=== PATIENT | female | born 1985 | race Caucasian/White ===

== ENCOUNTER 2018-07-25 00:03 | Emergency (ER) | payer BC ==
[2018-07-25] MEDS ORDERED: diphenhydrAMINE 50 MG Cap PO ONE (00:29)
[2018-07-25] MEDS ORDERED: HYDROmorphone 1 MG/ML Syringe IM ONE (00:29)
[2018-07-25] MEDS ORDERED: Ibuprofen 800 MG Tab PO ONE (00:36)
--- NOTE | 2018-07-25 00:40 | EDM.PDOC ---
ED HPI GENERAL MEDICAL PROBLEM - General Chief Complaint: Lower Extremity Injury/Pain Stated Complaint: knee pain Time Seen by Provider: 07/25/18 00:14 Source of Information: Reports: Patient History Limitations: Reports: No Limitations - History of Present Illness INITIAL COMMENTS - FREE TEXT/NARRATIVE: The patient is a 33-year-old female who presents with poorly controlled postoperative knee pain. She had an ACL repair completed yesterday. Initially her pain was well controlled. She was taking hydrocodone. However she had a lot of itching on the hydrocodone so was changed to Nucynta today. Since this switch , her pain has been increasingly poorly controlled. She's been taking up to 2 tabs every 4 hours with no relief. She's been staying off the knee as much as possible and has been icing it as well. She does feel like it is mildly swollen. It also feels warm to her. No fever. Pain is throbbing, constant, severe, worse with motion. She doesn't have follow-up scheduled until next week. Itching is improved now that she started taking hydrocodone but her pain relief is poor. Right Knee Pain Score (Numeric/FACES): 10 - Related Data Allergies Allergy/AdvReac Type Severity Reaction Status Date / Time hydrocodone AdvReac Itching Verified 07/25/18 00:15 Home Meds: Home Meds Aspirin 325 mg PO BID 07/25/18 [History] Gabapentin [Neurontin] 600 mg PO BID 07/25/18 [History] Tapentadol HCl [Nucynta] 50 - 100 mg PO Q6H PRN 07/25/18 [History] Past Medical History - Past Surgical History HEENT Surgical History: Reports: Oral Surgery Musculoskeletal Surgical History: Reports: Arthroscopic Knee, Shoulder Surgery Social & Family History - Family History Family Medical History: Noncontributory - Tobacco Use Smoking Status *Q: Never Smoker - Recreational Drug Use Recreational Drug Use: No Review of Systems - Review of Systems Review Of Systems: See Below Constitutional: Denies: Fever Respiratory: Reports: No Symptoms Cardiovascular: Reports: No Symptoms GI/Abdominal: Reports: No Symptoms Musculoskeletal: Reports: Leg Pain Neurological: Reports: No Symptoms ED EXAM, GENERAL - Physical Exam Exam: See Below Exam Limited By: No Limitations General Appearance: Alert, WD/WN, Mild Distress Eye Exam: Bilateral Eye: Normal Inspection Ears: Normal External Exam Nose: Normal Inspection Throat/Mouth: Normal Inspection, Normal Oropharynx, Normal Voice Head: Atraumatic, Normocephalic Neck: Normal Inspection, Supple Respiratory/Chest: No Respiratory Distress Extremities: Other (RLE: Sunny bandage removed. Dressing is clean and dry with a minimal amount of dried blood. Sutures intact, no purulence. No surrounding erythema. There is mild warmth and tenderness about the knee. No large effusion. No evidence of cellulitis.) Neurological: Alert, Oriented, Normal Cognition Psychiatric: Normal Affect, Normal Mood Course - Vital Signs Last Recorded V/S: Last Vital Signs Temp 36.6 C 07/25/18 00:11 Pulse 83 07/25/18 00:11 Resp 16 07/25/18 00:11 BP 132/74 07/25/18 00:11 Pulse Ox 97 07/25/18 00:11 - Orders/Labs/Meds Meds: Medications Discontinued Medications Generic Name Dose Route Start Last Admin Trade Name Freq PRN Reason Stop Dose Admin Diphenhydramine HCl 50 mg 07/25/18 00:29 07/25/18 00:34 Benadryl PO 07/25/18 00:30 50 mg ONETIME ONE Administration Hydromorphone HCl 1 mg 07/25/18 00:29 07/25/18 00:33 Dilaudid IM 07/25/18 00:30 1 mg ONETIME ONE Administration Ibuprofen 800 mg 07/25/18 00:36 07/25/18 00:40 Motrin PO 07/25/18 00:37 800 mg ONETIME ONE Administration - Re-Assessments/Exams Free Text/Narrative Re-Assessment/Exam: 07/25/18 00:38 That he does not have external signs of infection at this time. It has mild warmth about the knee but this appears to be within expected limits for postoperative day 2. She doesn't have a fever. Primary complaint is pain control and opioid side effects. She is given Dilaudid here with some improvement. We'll also give Benadryl, though I realize that the effectiveness of this for opioid associated pruritus is poor. We'll provide an [facility] prescription for oxycodone so she can see if she has less itching with this opioid. Encouraged her to follow-up with her orthopedist during daytime hours tomorrow. 10/03/18 01:00 Feeling better after dilaudid. Pain is controlled, pruritis has worsened which is to be expected. Patient will try to f/u with her orthopedist tomorrow. Discussed use of narcotics, alternating meds and spacing out doses at least 4 hours. She's here with her who also understood and can help with medication monitoring. Departure - Departure Time of Disposition: 01:01 Disposition: Home, Self-Care 01 Clinical Impression: Post-operative pain, Drug-induced pruritus Knee pain Qualifiers: Chronicity: acute Laterality: right Qualified Code(s): M25.561 - Pain in right knee - Discharge Information Referrals: PCP,Not In Area [Primary Care Provider] - Forms: ED Department Discharge Additional Instructions: 1. Try oxycodone to see if you have less itching with this medication. You may also take ibuprofen 800 mg three times daily to see if this decreases the amount of opioid medication required to control your pain. Try oxycodone to see if this causes less itching compared to hydrocodone while still providing better pain control than the Nucynta. 2. Follow up with your orthopedist tomorrow, especially if pain/swelling/ redness worsen or if you get a fever. 3. Return to the ED as needed for severe pain, fever, or other concerning symptoms.
== END 2018-07-25 01:20 | disposition home or self-care (01) ==
LOC: JD.ED 00:03
DX: L29.9 Pruritus, unspecified (principal); T40.2X5A Adverse effect of other opioids, initial encounter; G89.18 Other acute postprocedural pain; M25.561 Pain in right knee
CPT/HCPCS: 96372; 99283; A9270; J1170